=== PATIENT | female | born 1980 | race Caucasian/White ===

== ENCOUNTER 2016-03-10 16:09 | Emergency (ER) | payer OTHER ==
[~2016-03-10] VITALS: Ht 149.9 cm; Wt 42.0 kg
[2016-03-10 16:20] VITALS: Ht 149.9 cm; Wt 42.0 kg
--- NOTE | 2016-03-10 18:40 | ERD ---
ER Documentation Chief Complaint Date/Time DATE: 03/10/16 TIME: 18:36 Chief Complaint Pt with Vaginal discharge X 2 weeks, pelvic pain X 2 days. HPI This is a 35-year-old female presenting to the emergency department complaining of vaginal discharge for the past 2 weeks. Patient admits to having pelvic pain that comes and goes, she denies any current pelvic pain. She states that yesterday she had mild pelvic pain. She describes her vaginal discharge as yellow white with a foul odor. She states she is sexually active with one partner. She denies any fevers, urinary symptoms, hematuria. She states that she is on the Depo-Provera contraceptive. She has not taken any medications for this ROS All systems reviewed and are negative except as per history of present illness. Medications Home Meds Active Scripts Metronidazole* (Flagyl*) 500 Mg Tablet, 500 MG PO TID for 7 Days, TAB Prov:LISSET SENIOR PA-C 03/10/16 Allergies Allergies: Coded Allergies: No Known Allergy (Unverified , 03/10/16) PMhx/Soc Medical and Surgical Hx: pt denies Medical Hx, pt denies Surgical Hx Hx Alcohol Use: No Hx Substance Use: No Hx Tobacco Use: No Physical Exam Vitals Vital Signs Date Time Temp Pulse Resp B/P Pulse Ox O2 Delivery O2 Flow Rate FiO2 03/10/16 16:20 98.4 90 18 121/71 100 Physical Exam GENERAL: well-developed/well-nourished, in no apparent distress, non-toxic appearing HENT: NC/AT EYES: Conjunctiva normal NECK: Supple, no lymphadenopathy PULM: CTA bilaterally, no rales, rhonchi, or wheezing heard CV: Normal S1S2, RRR, good capillary refill GI: Soft, non-distended, tender to palpation in Normal bowel sounds, no masses or organomegaly felt on exam No gross peritonitis, no bruits Negative Rosvings, negative Hernandez, negative McBurney's point, negative CVAT : PELVIC EXAM: Malodorous thick white vaginal discharge in vaginal vault BIMANUAL EXAM: non-tender, negative chandelier sign BACK: No midline tenderness, no masses EXT: No clubbing, cyanosis, or edema NEURO: Alert and Orientated, gait normal SKIN: Intact, normal turgor PSYCH: Normal mood and mentation Results 24 hrs Laboratory Tests Test 03/10/16 18:27 Urine Bilirubin NEGATIVE Urine Clarity CLEAR Urine Color LT. YELLOW Urine Glucose NEGATIVE% Urine Hemoglobin NEGATIVE Urine Ketones NEGATIVE Urine Leukocyte Esterase 1+ Urine Microscopic RBC 0-2/HPF Urine Microscopic WBC 2-5/HPF Urine Nitrite NEGATIVE Urine Specific [place] 1.025 Urine Squamous Epithelial Cells FEW Urine Total Protein NEGATIVE Urine Urobilinogen 0.2 E.U./dL Urine pH 6.5 Procedures/MDM This is a 35-year-old female presenting to the emergency room with a complaint of right thin vaginal discharge for the past 2 weeks and on and off pelvic pain. On examination patient had white thin vaginal discharge that may be likely due to bacterial vaginosis, gonorrhea or chlamydia. She did not have any friable cervix, she did not have any cervical motion tenderness. I have a low suspicion for PID. Patient is afebrile and appears well. Fungal wet mount showed evidence of trichomoniasis and bacterial vaginosis. UA showed +1 leukocyte esterase with 2-5 white blood cell count which can be seen in trichomoniasis however I have sent a urine culture out for possible other causes of urinary tract infection. A urine culture for gonorrhea and Coumadin was also sent out. Patient be given a prescription for Flagyl to cover trichomoniasis and bacterial vaginosis. I discussed to follow-up with an OB/ RIP MACHINE OPERATOR. Discussed return to the ER for any worsening signs or symptoms. Patient understands and agrees with this plan. She is remaining stable for discharge Departure Diagnosis: Primary Impression: Trichimoniasis Additional Impression: Bacterial vaginosis Condition: Stable LISSET SENIOR PA-C Mar 10, 2016 18:40
[2016-03-10 18:43] LABS: ADD UMIC YES; URINE BILIRUBIN (Dip) NEGATIVE (NEGATIVE); URINE BLOOD (Dip) NEGATIVE (NEGATIVE); URINE COLOR LT. YELLOW (YELLOW); URINE GLUCOSE (Dip) NEGATIVE (NEGATIVE); URINE KETONES (Dip) NEGATIVE (NEGATIVE); URINE LEUKOCYTE ESTERASE (Dip) 1+ (NEGATIVE); URINE NITRITE (Dip) NEGATIVE (NEGATIVE); URINE TOTAL PROTEIN (Dip) NEGATIVE (NEGATIVE); URINE UROBILINOGEN (Dip) 0.2 E.U./dL (0.1-1.0)
[2016-03-10] MEDS ORDERED: METR500T PO (19:04)
[2016-03-10 19:13] LABS: SQUAMOUS EPITHELIAL CELL,UR FEW; URINE RBCS 0-2 /HPF (0)
== END 2016-03-10 19:21 | disposition home or self-care (01) ==
LOC: FTE 16:09
DX: A59.9 Trichomoniasis, unspecified (principal); N76.0 Acute vaginitis
CPT/HCPCS: 81001; 81003; 87086; 87210; 87591; 99284